=== PATIENT | female | born 1970 | race Caucasian/White ===

== ENCOUNTER 2017-01-25 20:01 | Observation (INO) | payer MEDICARE ==
[2017-01-25] MEDS ORDERED: Ondansetron HCl/PF 4 MG/2 ML Vial ONE ×2 (20:19→22:09)
[2017-01-25 20:53] LABS: ALT (SGPT) 26 U/L (8-55); AST (SGOT) 44 U/L (5-34); Alkaline Phosphatase 60 U/L (40-150); Anion Gap 12 mmol/L (10-20); BUN (Urea Nitrogen) 14 mg/dL (7.0-18.7); Bilirubin, Total 0.6 mg/dL (0.2-1.2); Calc. Creatinine Clearance 0 mL/min (70-130); Carbon Dioxide 26 mmol/L (22-29); Chloride 104 mmol/L (98-107); Estimated GFR-MDRD 45; Globulin 4.2 g/dL (2.4-3.5); Lipase 8 U/L (8-78); Protein, Total 8.4 g/dL (6.0-8.3); Troponin I Less than 0.010 ng/mL (< 0.028)
[2017-01-25 21:19] LABS: #Eosinphils 0.2 thou/uL (0.0-0.7); #Lymphocytes 1.9 thou/uL (1.20-3.40); #Monocytes 0.4 thou/uL (0.11-0.59); #Neutrophils 9.1 thou/uL (1.40-6.50); %Basophils 0.2 % (0.0-1.0); %Eosinophils 1.9 % (0.0-10.0); %Lymphocytes 16.4 % (21.0-51.0); %Monocytes 3.5 % (0.0-10.0); Hematocrit 47.5 % (36.0-47.0); Mean Platelet Volume 7.3 fL (7.4-10.4); White Blood Cell (WBC) Count 11.7 thou/uL (4.8-10.8)
[2017-01-25 21:53] LABS: Bilirubin Negative (Negative); Blood, Urine Negative (Negative); Glucose, Urine (Dipstick) Negative (Negative); Ketone, Urine Negative (Negative); Nitrite Negative (Negative); Protein, Urine (Dipstick) Negative (Neg-Trace); Urobilinogen 0.2 mg/dL (0.2-1.0)
[2017-01-25] MEDS ORDERED: Morphine 2 MG/ML SYRINGE ONE (22:09)
--- NOTE | 2017-01-25 23:23 | CT ---
CT ABDOMEN AND PELVIS WITHOUT CONTRAST: 01/25/17 HISTORY: Epigastric pain, nausea, bilateral flank pain. FINDINGS: The absence of oral and IV contrast reduces the sensitivity of exam, particularly for evaluation of solid organs and bowel. The lung bases are clear. No free air or free fluid seen in the abdomen or pelvis. The patient is po st cholecystectomy, gastric sleeve surgery. No calculi is seen in the kidneys, ureters, or the urina ry bladder. No hydroureteronephrosis is noted on either side. A normal appearing appendix is present . There is fecal material in the colon. Degenerative changes are present in the spine. IMPRESSION: No CT evidence of urinary tract calculi/obstruction or appendicitis. POS: [facility]
[2017-01-26 00:22] LABS: Lactic Acid - Sepsis 1.3 mmol/L (0.5-2.2)
[2017-01-26] MEDS ORDERED: Morphine 2 MG/ML SYRINGE ONE (00:28)
[2017-01-26 01:10] LABS: Troponin I Less than 0.010 ng/mL (< 0.028)
[2017-01-26 01:26] VITALS: BMI 27.6
[2017-01-26] MEDS ORDERED: HYDROcodone/Acetaminophen 7.5/325 mg Tablet PO PRN (01:48)
[2017-01-26] MEDS ORDERED: Acetaminophen 325 MG TAB PO PRN (01:48)
[2017-01-26] MEDS ORDERED: Ondansetron HCl/PF 4 MG/2 ML Vial IVP PRN (01:48)
[2017-01-26] MEDS ORDERED: Lorazepam 1 MG TAB PO PRN (01:52)
[2017-01-26] MEDS ORDERED: Torsemide 20 MG TAB PO PRN (01:52)
[2017-01-26] MEDS ORDERED: Morphine 2 MG/ML SYRINGE SLOW IVP PRN (01:54)
[2017-01-26] MEDS ORDERED: Sodium Chloride 0.9% 1,000 ML IV SCH ×2 (02:00→09:45)
[2017-01-26 04:46] LABS: #Eosinphils 0.1 thou/uL (0.0-0.7); #Lymphocytes 0.8 thou/uL (1.20-3.40); #Monocytes 0.4 thou/uL (0.11-0.59); %Basophils 0.1 % (0.0-1.0); %Lymphocytes 8.3 % (21.0-51.0); %Monocytes 4.1 % (0.0-10.0); Hematocrit 41.1 % (36.0-47.0); Mean Platelet Volume 7.3 fL (7.4-10.4); Red Blood Cell (RBC) Count 4.13 mill/uL (4.20-5.40); White Blood Cell (WBC) Count 9.2 thou/uL (4.8-10.8)
[2017-01-26 06:59] LABS: Anion Gap 10 mmol/L (10-20); BUN (Urea Nitrogen) 21 mg/dL (7.0-18.7); Calc. Creatinine Clearance 53 mL/min (70-130); Calcium 7.9 mg/dL (7.8-10.44); Carbon Dioxide 24 mmol/L (22-29); Chloride 105 mmol/L (98-107); Estimated GFR-MDRD 37; Troponin I 0.023 ng/mL (< 0.028)
--- NOTE | 2017-01-26 07:43 | HP ---
DATE OF ADMISSION: 01/26/2017 CHIEF COMPLAINT: Left-sided pain and nausea. HISTORY OF PRESENT ILLNESS: Patient is a 46-year-old female with past medical history of hypertensi on, coronary artery disease, hyperlipidemia, nephrolithiasis, anxiety, depression, now came today co mplaining of left flank pain and left lower posterior rib cage pain. Pain started this afternoon, s harp shooting kind of pain, intermittent, does not radiate anywhere, associated with some nausea and generalized weakness also. Denies any chest pain, denies any trouble breathing, denies any dizzine ss, denies any cough, denies any sputum production, denies any fever, denies any chills. Complains of fever. Fever is up to 101. Patient also complains of increased frequency of micturition, but de nies any dysuria. Denies any diarrhea. Denies any bloody stool. Denies any black stools. PAST MEDICAL HISTORY: As per HPI. PAST SURGICAL HISTORY: Cardiac stent placement, cholecystectomy, hysterectomy, tubal ligation. SOCIAL HISTORY: Denies smoking, denies alcohol, denies any drugs. FAMILY HISTORY: Positive for heart problems. MEDICATIONS: Reviewed. REVIEW OF SYSTEMS: Constitutional: Positive for fever and chills. Eyes: Denies any vision. Ears : Denies any hearing loss. Neck: Denies any neck pain. Cardiovascular System: Denies any chest pain. Respiratory System: Positive for dyspnea. Positive for cough. Cranial Nerve System: Denie s syncope. Denies lightheadedness. Musculoskeletal: Positive for left flank pain. Gastrointestin al: Positive for nausea. Integumentary: Denies any rash. Genitourinary: Denies dysuria. Compla ins of increased frequency of micturition. All other review of systems are reviewed and are negativ e. PHYSICAL EXAMINATION: CONSTITUTIONAL/VITAL SIGNS: At the time of H and P performed, blood pressure is 95/59, pulse oximet ry 100%, heart rate 94. GENERAL APPEARANCE: Patient appears comfortable. HEENT: Pupils are equal, round, and reactive. Anterior nares patent. Nose normal. Ears normal. Teeth intact. Tongue is moist. NECK: Supple, no JVD. CARDIOVASCULAR SYSTEM: S1 and S2 present. Regular rate and rhythm. No murmurs, no rubs, no gallop s. RESPIRATORY SYSTEM: No wheezing, no rhonchi. Breath sounds present bilaterally. GASTROINTESTINAL: Abdomen is soft, nontender, no guarding, no organomegaly, no masses felt. MUSCULOSKELETAL: No edema. CRANIAL NERVOUS SYSTEM: Awake, follows commands. Strength intact. Sensory intact. PSYCHIATRIC: Mood is appropriate at this time. INTEGUMENTARY: No obvious rashes seen. LABORATORY DATA: At the time of H and P performed, Sodium 137, potassium 5.2, creatinine 1.28, BUN is 14. White count 11.7, hemoglobin 15.8, platelet count is 275. UA: Specific gravity 1.006. CT abdomen and pelvis, no CT evidence of urinary tract calculus or obstruction or appendicitis.. ASSESSMENT AND PLAN: The patient is a 46-year-old female. 1. Left posterior chest pain/flank pain. Plan to check cardiac enzymes. EKG showed some poor R-wa ve progression. We will monitor the patient closely. Plan to place the patient on telemetry. 2. Increased frequency of micturition, rule out urinary tract infection plus fever. Plan, start th e patient on Levaquin 750 IV daily. Plan to send urine for culture and sensitivity. 3. Hypotension. Monitor blood pressure closely. Low blood pressure might be secondary to pain med ications, currently symptomatic. We will give IV fluids. 4. History of coronary artery disease. Continue home medications. 5. History of hyperlipidemia. Continue on statins. The case was discussed in detail with the patient.
--- NOTE | 2017-01-26 08:27 | RAD ---
PORTABLE AP CHEST: Date: 01-26-17 History: Flank pain and nausea, fever. Comparison: 01-26-15 FINDINGS: Cardiac silhouette and pulmonary vasculature are within normal limits. The lungs are clear. There cano s been no interval change from the prior study. IMPRESSION: No acute cardiopulmonary process. POS: [facility]
--- NOTE | 2017-01-26 08:44 | PDOC.PN ---
- Subjective Encounter Start Date: 01/26/17 Encounter Start Time: 08:43 Ms. Kirkland says the pain she was having is now localized to her left side. She felt it when she got up to brush her teeth. She also notes it worse when she takes in a deep breath. she also mentions sinus drainage which has been more lately. - Objective MAR Reviewed: Yes Vital Signs & Weight: Vital Signs (12 hours) Temp Pulse Resp BP BP Pulse Ox 01/26/17 08:06 99.4 F 79 16 01/26/17 07:15 99.4 F 79 16 82/47 L 96 01/26/17 05:49 98/56 L 01/26/17 03:40 98.6 F 88 14 82/44 L 95 01/26/17 02:58 100.8 F H 96 18 Weight Weight 160 lb 14.4 oz I&O: 01/25/17 01/26/17 01/27/17 06:59 06:59 06:59 Intake Total 385 Output Total 350 Balance 35 Result Diagrams: 01/26/17 03:56 01/26/17 03:56 Additional Labs: Accuchecks 01/26/17 01/26/17 05:46 01:34 POC Glucose 380 H 247 H Phys Exam - Physical Examination HEENT: PERRLA + faint rattle in the left base, cleared with a deep breath Cardiovascular: RRR, no significant murmur Gastrointestinal: soft, non-tender, positive bowel sounds Musculoskeletal: no edema Dx/Plan (1) Left flank pain Code(s): R10.9 - UNSPECIFIED ABDOMINAL PAIN Status: Acute (2) Maryo-sv-[id number] kidney injury Code(s): N17.9 - ACUTE KIDNEY FAILURE, UNSPECIFIED; N18.9 - CHRONIC KIDNEY DISEASE, UNSPECIFIED Status: Acute (3) CAD (coronary artery disease) Code(s): I25.10 - ATHSCL HEART DISEASE OF [place] CORONARY ARTERY W/O ANG PCTRS Status: Chronic (4) Diabetes mellitus Code(s): E11.9 - TYPE 2 DIABETES MELLITUS WITHOUT COMPLICATIONS Status: Chronic Qualifiers: Diabetes mellitus type: type 1 - Plan * Left flank pain- suspect may be due to early pneumonia- she had some very subtle changes on her lung exam, and low grade temp with upper respiratory symptoms- Will start a course on Levaquin * DM- blood glucose is elevated- she has an insulin pump, will allow her to self correct * CAD- stable * HTN- blood pressure is a bit low, likely from volume depletion- continue IV hydration * Hopefully home later this afternoon .
[2017-01-26] MEDS ORDERED: Clopidogrel Bisulfate 75 MG TAB PO SCH (09:00)
[2017-01-26] MEDS ORDERED: Aspirin 81 mg Enteric Coated Tablet PO SCH (09:00)
[2017-01-26] MEDS ORDERED: Famotidine 20 MG TAB PO SCH (09:00)
[2017-01-26] MEDS ORDERED: FLU VACC QS2017-18 36 mo. & older 0.5 ML SYRINGE IM ONE (09:00)
[2017-01-26] MEDS: Heparin 5,000 UNITS/ML VIAL SC SCH ×2 (09:17→15:12)
[2017-01-26 11:52] VITALS: TEMP 98.5
[2017-01-26 13:30] VITALS: BP 108/55
[2017-01-26] MEDS ORDERED: Metoclopramide HCl 10 MG/2 ML VIAL IVP SCH (14:00)
--- NOTE | 2017-01-26 21:31 | DIS ---
PRIMARY CARE PHYSICIAN: Natali Florez M.D. DATE OF ADMISSION: 01/26/2017 DATE OF DISCHARGE: 01/26/2017 DISCHARGE DISPOSITION: Home. PRIMARY DISCHARGE DIAGNOSES: 1. Left flank pain, questionable etiology. 2. Probable early pneumonia. 3. History of coronary artery disease. 4. Dyslipidemia. 5. History of nephrolithiasis. DISCHARGE MEDICATIONS: Include, Levaquin 500 mg 1 p.o. q. day for 7 days as well as Phenergan 25 mg q.6 hours as needed, Bystolic 5 mg daily, Ativan 1 mg t.i.d. as needed, Dexilant 60 mg daily, Plavi x 75 mg daily, aspirin 81 mg daily, calcium plus vitamin D3 two tablets twice a day. PROCEDURES DONE DURING ADMISSION: The patient had a CT scan of the abdomen and pelvis, which showed no evidence of any urinary tract calculi. There was no obstruction, no appendicitis. There were s ome degenerative changes noted in the spine. The patient also had a chest x-ray showing no acute pr ocess. HOSPITAL COURSE: Ms. Kirkland is a pleasant 46-year-old female that presented to the emergency room c omplaining of some left sided pain and feeling nauseated. She was also having some fever and sinus drainage as well as some cough off and on. She was initially thought to possibly have nephrolithias is; however, CT scan of the abdomen and pelvis was essentially negative. Her urinalysis was complet carlie negative with no evidence of any blood in the urine. Also, her CBC, there is noted slightly kianna vated white blood cell count and left shift, but this resolved the following morning and she did hav e some mild renal insufficiency, which was made slightly worse due to volume depletion. Her symptom s actually began to improve somewhat during her hospital stay, but not completely resolved. However , there was no symptom that will require continued hospital treatment, and that her vital signs at t he time of discharge, she was afebrile with a temperature of 98.5, and a blood pressure of 108/55, a nd a heart rate of 78. There is no ectopy on her telemetry and blood sugar at the time of discharge was 106. Her troponin was 0.023. It is suspected that she may have an early pneumonia and she did have some rhonchi and rales, which cleared with a deep breath. On exam, in the same location where she was having the pain. Therefore, she will be discharged home on Levaquin for community-acquired pneumonia as well as Phenergan for the nausea and vomiting and she was instructed to follow up with her primary care physician in approximately 1 week. I did explain to her that she may need an eval uation for her heart such as a stress test, but this can be done on an outpatient basis.
== END 2017-01-26 15:35 | disposition home or self-care (01) ==
LOC: ERS 20:01 → 2SW 01-26 00:53
PROVIDERS: ADMIT Internal Medicine; ATTEND Internal Medicine
DX: R10.9 Unspecified abdominal pain (principal); I25.10 Atherosclerotic heart disease of native coronary artery without angina pectoris; E78.5 Hyperlipidemia, unspecified; N28.9 Disorder of kidney and ureter, unspecified; R09.89 Other specified symptoms and signs involving the circulatory and respiratory systems; R11.0 Nausea; I10 Essential (primary) hypertension; F32.9 Major depressive disorder, single episode, unspecified; F41.9 Anxiety disorder, unspecified; R07.81 Pleurodynia; R35.0 Frequency of micturition; I95.9 Hypotension, unspecified; R53.1 Weakness; Z79.4 Long term (current) use of insulin; Z79.02 Long term (current) use of antithrombotics/antiplatelets; Z79.82 Long term (current) use of aspirin; Z79.899 Other long term (current) drug therapy; Z91.048 Other nonmedicinal substance allergy status; Z98.51 Tubal ligation status; Z95.818 Presence of other cardiac implants and grafts; Z90.49 Acquired absence of other specified parts of digestive tract; Z90.710 Acquired absence of both cervix and uterus; Z87.442 Personal history of urinary calculi
CPT/HCPCS: 71010; 74176; 80048; 80053; 81003; 82550; 82553; 82962 ×2; 83605; 83690; 84484 ×3; 85025 ×2; 87040; 87804 ×2; 93005; 96361; 96365; 96375; 96376; G0378; 36415; 36416; 96374; J1644; J1956; J2270; J2405; J2765

== ENCOUNTER 2017-04-30 11:16 | Emergency (ER) | payer MEDICARE ==
[2017-04-30 11:55] LABS: #Lymphocytes 1.4 thou/uL (1.20-3.40); #Monocytes 0.5 thou/uL (0.11-0.59); #Neutrophils 10.5 thou/uL (1.40-6.50); %Basophils 0.4 % (0.0-1.0); %Lymphocytes 11.4 % (21.0-51.0); %Monocytes 4.1 % (0.0-10.0); %Neutrophils 84.2 % (42.0-75.0); Hemoglobin 12.2 g/dL (12.0-16.0); Mean Corpuscular HGB CONC 33.7 g/dL (32.0-36.0); Mean Corpuscular Hemoglobin 32.1 pg (27.0-31.0); Mean Corpuscular Volume 95.3 fl (81.0-99.0); Mean Platelet Volume 6.8 fL (7.4-10.4); Platelet Count 224 thou/uL (130-400); RBC Distribution Width 12.2 % (11.5-14.5); Red Blood Cell (RBC) Count 3.79 mill/uL (4.20-5.40); White Blood Cell (WBC) Count 12.5 thou/uL (4.8-10.8)
[2017-04-30 12:08] LABS: ALT (SGPT) 44 U/L (8-55); AST (SGOT) 98 U/L (5-34); Albumin 3.9 g/dL (3.5-5.0); Alkaline Phosphatase 44 U/L (40-150); Anion Gap 19 mmol/L (10-20); BUN (Urea Nitrogen) 18 mg/dL (7.0-18.7); Bilirubin, Total 0.7 mg/dL (0.2-1.2); Calc. Creatinine Clearance 0 mL/min (70-130); Calcium 9.1 mg/dL (7.8-10.44); Carbon Dioxide 17 mmol/L (22-29); Chloride 102 mmol/L (98-107); Estimated GFR-MDRD 35; Glucose 431 mg/dL (70-105); Potassium 4.8 mmol/L (3.5-5.1); Protein, Total 6.9 g/dL (6.0-8.3); Sodium 133 mmol/L (136-145)
--- NOTE | 2017-04-30 12:38 | RAD ---
TWO VIEWS OF THE CHEST: COMPARISON: 07/04/14. HISTORY: Fever. FINDINGS: Two views of the chest show normal sized cardiomediastinal silhouette. There is no evidence of consol idation, mass, or pleural effusion. Mild degenerative changes are seen in the spine. IMPRESSION: No evidence of acute cardiopulmonary disease. POS: [facility]
[2017-04-30 13:16] LABS: Bilirubin Negative (Negative); Blood, Urine Negative (Negative); Clarity Slightly Cloudy (Clear); Glucose, Urine (Dipstick) >=1000 mg/dL (Negative); Leukocyte Negative (Negative); Nitrite Negative (Negative); Protein, Urine (Dipstick) Negative (Neg-Trace); Urobilinogen 0.2 mg/dL (0.2-1.0); pH, Urine 5.5 (5.0-9.0)
[2017-04-30 13:22] LABS: Specific Gravity, Urine 1.013 (1.002-1.036)
[2017-04-30] MEDS ORDERED: Insulin Regular 300 UNITS/3 ML VIAL ONE (13:39)
== END 2017-04-30 18:28 | disposition home or self-care (01) ==
LOC: SCSER 11:16
DX: E10.65 Type 1 diabetes mellitus with hyperglycemia (principal); J06.9 Acute upper respiratory infection, unspecified; I25.10 Atherosclerotic heart disease of native coronary artery without angina pectoris; K21.9 Gastro-esophageal reflux disease without esophagitis; N18.6 End stage renal disease; F41.9 Anxiety disorder, unspecified; F32.9 Major depressive disorder, single episode, unspecified; Z79.82 Long term (current) use of aspirin; Z79.899 Other long term (current) drug therapy
CPT/HCPCS: 36415; 36416; 71046; 80053; 81003; 82010; 85025; 87081; 87430; 93005; 96361; 96374; J1815

== ENCOUNTER 2018-02-14 12:36 | Inpatient (IN) | payer MEDICARE ==
[2018-02-14 13:18] VITALS: BMI 27.2
[2018-02-14 14:40] LABS: #Basophils 0.1 thou/uL (0.0-0.2); #Eosinphils 0.1 thou/uL (0.0-0.7); #Lymphocytes 2.5 thou/uL (1.20-3.40); #Monocytes 0.3 thou/uL (0.11-0.59); #Neutrophils 2.8 thou/uL (1.40-6.50); %Basophils 0.9 % (0.0-1.0); %Eosinophils 2.2 % (0.0-10.0); %Lymphocytes 43.2 % (21.0-51.0); %Monocytes 5.6 % (0.0-10.0); %Neutrophils 48.1 % (42.0-75.0); Hemoglobin 14.6 g/dL (12.0-16.0); Mean Corpuscular HGB CONC 32.2 g/dL (32.0-36.0); Mean Corpuscular Hemoglobin 31.7 pg (27.0-31.0); Mean Corpuscular Volume 98.3 fL (78.0-98.0); Mean Platelet Volume 7.3 fL (7.4-10.4); Platelet Count 214 thou/uL (130-400); RBC Distribution Width 11.4 % (11.5-14.5); Red Blood Cell (RBC) Count 4.63 mill/uL (4.20-5.40); White Blood Cell (WBC) Count 5.9 thou/uL (4.8-10.8)
[2018-02-14 14:44] LABS: INR-International Normal Ratio 1.1; PTT 28.9 SEC (22.9-36.1)
[2018-02-14 14:59] LABS: ALT (SGPT) 26 U/L (8-55); AST (SGOT) 40 U/L (5-34); Albumin 4.2 g/dL (3.5-5.0); Alkaline Phosphatase 58 U/L (40-150); Anion Gap 8 mmol/L (10-20); BUN (Urea Nitrogen) 15 mg/dL (7.0-18.7); Bilirubin, Total 0.7 mg/dL (0.2-1.2); Calc. Creatinine Clearance 54 mL/min (70-130); Calcium 9.7 mg/dL (7.8-10.44); Carbon Dioxide 28 mmol/L (22-29); Chloride 105 mmol/L (98-107); Estimated GFR-MDRD 39; Globulin 3.4 g/dL (2.4-3.5); Glucose 161 mg/dL (70-105); Potassium 4.4 mmol/L (3.5-5.1); Protein, Total 7.6 g/dL (6.0-8.3); Sodium 137 mmol/L (136-145)
[2018-02-14] MEDS ORDERED: Lorazepam 1 MG TAB PO PRN (15:01)
[2018-02-14 15:04] LABS: Troponin I Less than 0.010 ng/mL (< 0.028)
[2018-02-14] MEDS ORDERED: Enoxaparin Sodium 80 MG/0.8 ML SYRINGE SC SCH (17:44)
[2018-02-14] MEDS ORDERED: Communication Order-Pharmacy FS SCH (17:45)
[2018-02-14] MEDS ORDERED: Insulin Regular 300 UNITS/3 ML VIAL SC PRN (17:46)
[2018-02-14] MEDS ORDERED: Dextrose 5% in Water 1,000 ML IV PRN (17:46)
[2018-02-14] MEDS ORDERED: Nitroglycerin 0.4 MG TAB (25 Tab Bottle) SL PRN (17:46)
[2018-02-14] MEDS ORDERED: Dextrose 50% Abboject 50 ML SYRINGE IVP PRN (17:46)
[2018-02-14] MEDS ORDERED: Aspirin 81 mg Enteric Coated Tablet PO SCH (18:00)
[2018-02-14] MEDS ORDERED: Clopidogrel Bisulfate 75 MG TAB PO SCH (18:00)
[2018-02-14] MEDS ORDERED: Rosuvastatin 20 MG TAB PO SCH (18:15)
[2018-02-14] MEDS ORDERED: Amlodipine 5 MG TAB PO SCH (18:15)
[2018-02-14] MEDS ORDERED: Estrogens, Conjugated 0.3 MG TAB PO SCH (18:15)
[2018-02-15] MEDS ORDERED: Diazepam 5 MG TAB PO SCH (06:00)
[2018-02-15] MEDS: Sodium Chloride 0.9% 1,000 ML IV SCH ×3 (06:04→20:37)
[2018-02-15] MEDS: Rosuvastatin 20 MG TAB PO SCH (06:12)
[2018-02-15] MEDS: Aspirin 81 mg Enteric Coated Tablet PO SCH (06:13)
[2018-02-15] MEDS: Estrogens, Conjugated 0.3 MG TAB PO SCH (06:16)
[2018-02-15] MEDS ORDERED: Lidocaine 1% (PF) 30 ML VIAL ONE (08:42)
[2018-02-15] MEDS ORDERED: Amlodipine 5 MG TAB PO SCH (09:00)
[2018-02-15] MEDS ORDERED: Clopidogrel Bisulfate 75 MG TAB PO SCH (09:00)
[2018-02-15] MEDS ORDERED: Midazolam HCl 2 mg/2 ml Vial ONE (09:03)
[2018-02-15] MEDS ORDERED: Fentanyl 100 MCG/2 ML VIAL ONE (09:04)
[2018-02-15] MEDS ORDERED: Nitroglycerin 100MG/250ML BOT 250 ML ONE (09:33)
[2018-02-15] MEDS ORDERED: Acetaminophen/Codeine 30-300mg Tablet PO PRN ×2 (10:12)
[2018-02-15] MEDS ORDERED: Nitroglycerin 0.4 MG TAB (25 Tab Bottle) SL PRN (10:12)
[2018-02-15] MEDS ORDERED: traMADol HCl 50 MG TAB PO PRN (10:12)
[2018-02-15] MEDS ORDERED: Sodium Chloride 0.9% 200 ML IV SCH (10:15)
[2018-02-15] MEDS ORDERED: Iopamidol 370 76% 100 ML VIAL ONE (10:45)
[2018-02-15] MEDS ORDERED: Ondansetron PF 4 MG/2 ML Vial IVP PRN (11:18)
[2018-02-15] MEDS ORDERED: TICAGRELOR 90 MG TABLET PO SCH (11:30)
[2018-02-15] MEDS ORDERED: Nitroglycerin 2% Ointment 1 INCH/1 GM Packet TOP SCH (20:00)
[2018-02-15] MEDS: TICAGRELOR 90 MG TABLET PO SCH (20:35)
[2018-02-16] MEDS: Sodium Chloride 0.9% 1,000 ML IV SCH (02:12)
[2018-02-16] MEDS: Aspirin 81 mg Enteric Coated Tablet PO SCH (08:25)
[2018-02-16] MEDS: Estrogens, Conjugated 0.3 MG TAB PO SCH (08:25)
[2018-02-16] MEDS: Rosuvastatin 20 MG TAB PO SCH (08:26)
[2018-02-16] MEDS: TICAGRELOR 90 MG TABLET PO SCH (08:26)
[2018-02-16 11:33] VITALS: BP 99/57; TEMP 98
--- NOTE | 2018-02-16 22:53 | DIS ---
FINAL DIAGNOSES: 1. Coronary artery disease, single vessel. 2. Diabetes. 3. Hypercholesterolemia, controlled. MEDICATIONS AT THE TIME OF DISCHARGE: 1. Aspirin 81 mg a day. 2. Brilinta 90 mg twice a day. 3. Ranexa 500 mg twice a day. Dose to be increased if needed. 4. Isosorbide mononitrate 30 mg a day. 5. Bystolic 2.5 mg a day. 6. Nitroglycerin if needed. PROCEDURES DURING THIS ADMISSION: Cardiac catheterization. HOSPITAL COURSE: The patient was admitted to the hospital with resting anginal chest pain, relieved with nitroglycerin. She went to the cardiac catheterization lab yesterday revealed that the patient had a 30% proximal LAD lesion, no stenosis in the stented area before a large first diagonal branch. The LAD beyond the first diagonal branch is very small. There is a 90% lesion in that area, but the vessel size distal to the lesion appears to be approximately 1.5 mm in diameter. It is certainly be low 2 mm. The LAD does not supply the apex, circumflex normal, right coronary large distribution vessel normal and the posterior descending artery supplies the apex. Consideration was given to best treatment. It certainly appeared that the LAD is extremely small in area. Certainly the LAD looked smaller than any available stents. The small stent we have here is 2 .25 mm in diameter, but even a 2-mm stent would appear to be oversized. In addition, there is some t ortuosity before and after the stenosis and appeared that the most appropriate initial step would be aggressive medical therapy. The patient was given medicines and she is feeling well. She is up walk ing in the halls. If she has intractable angina, intervention could be done, but discussed with the patient, this could result in occlusion of the LAD, may be this better to let her the artery hopefull y form collaterals. There do not appear to be collaterals currently. If the patient has intractable angina, intervention could be done, but the understanding that this co uld result in vessel occlusion with acute infarction as mentioned in the LAD does not supply the apex and only supplies a small amount of myocardium. There is no diagonal branches given off distal to t he lesion and it does not go to the apex. Certainly balloon angioplasty could be done, but in the sm all vessels sometimes result in dissection that requiring stenting which is problematic in this case. Also showed these films to one of our partners, Dr. Daniel. He also agrees with this strategy a nd indicates he would not proceed directly to intervention which is also my opinion. Discussed this in detail with the patient and , they understand and in agreement with the plan. Unfortunatel y, there is no ideal treatment of this situation. The vessel was much too small to bypass.
== END 2018-02-16 15:07 | disposition home or self-care (01) | DRG 287 ==
LOC: 2NO 12:36
PROVIDERS: ADMIT Internal Medicine Cardiovascular Disease; ATTEND Internal Medicine Cardiovascular Disease
PROC: 4A023N7 Measurement of Cardiac Sampling and Pressure, Left Heart, Percutaneous Approach (ICD-10-PCS; principal; 2018-02-15)
PROC: B2111ZZ Fluoroscopy of Multiple Coronary Arteries using Low Osmolar Contrast (ICD-10-PCS; 2018-02-15)
PROC: B2151ZZ Fluoroscopy of Left Heart using Low Osmolar Contrast (ICD-10-PCS; 2018-02-15)
DX: I25.110 Atherosclerotic heart disease of native coronary artery with unstable angina pectoris (principal); E78.5 Hyperlipidemia, unspecified; E11.9 Type 2 diabetes mellitus without complications; K21.9 Gastro-esophageal reflux disease without esophagitis; I10 Essential (primary) hypertension; Z79.899 Other long term (current) drug therapy; Z79.4 Long term (current) use of insulin; Z79.82 Long term (current) use of aspirin; Z79.02 Long term (current) use of antithrombotics/antiplatelets; Z91.048 Other nonmedicinal substance allergy status
CPT/HCPCS: 36415; 76942; 80053; 84484; 85025; 85610; 85730; 90471; 90686; 90732; 93458; 99152; 99153; C1769; G0008; G0009; J1644; J1650; J2001; J2250; J2405; J3010

== ENCOUNTER 2018-07-03 10:38 | Outpatient (CLI) | payer MEDICARE ==
--- NOTE | 2018-07-03 11:09 | RAD ---
Exam: Right hip 2 views: HISTORY: Right hip pain Findings/impression: Degenerative changes without fracture or dislocation.
--- NOTE | 2018-07-03 13:16 | RAD ---
FRONTAL RADIOGRAPH PELVIS: Date: 07/03/18 COMPARISON: None. HISTORY: Bilateral hip pain. FINDINGS: No widening of the sacroiliac joints or pubic symphysis. The pelvic ring appears intact. The femoral heads project normally over their respective acetabulum. There is degenerative change involving bilat eral hips, better assessed on dedicated bilateral hip radiographs. IMPRESSION: No acute osseous abnormality. POS: [facility]
--- NOTE | 2018-07-03 13:19 | RAD ---
2 VIEWS LEFT HIP: Date: 07/03/18 COMPARISON: None. HISTORY: Left hip pain. FINDINGS: There is mild superior joint space narrowing involving the left hip. There is mild lateral acetabular osteophyte formation. There is mild subchondral sclerotic change involving the lateral aspect of the left acetabular roof. There is no displaced fracture or evidence of dislocation seen. IMPRESSION: Degenerative change as detailed above. POS: [facility]
== END 2018-07-03 10:39 | disposition home or self-care (01) ==
LOC: RAD 10:38
PROVIDERS: ATTEND Internal Medicine Rheumatology
DX: M25.551 Pain in right hip (principal); M25.552 Pain in left hip; M16.0 Bilateral primary osteoarthritis of hip
CPT/HCPCS: 72170

== ENCOUNTER 2020-05-22 05:53 | Day surgery (SDC) | payer MEDICARE ==
[2020-05-21 12:26] VITALS: BMI 28.1
[2020-05-22] MEDS ORDERED: Cyclopentolate 1% Opth Drop 2 ML BOT ONE (06:06)
[2020-05-22] MEDS ORDERED: Phenylephrine 2.5% Ophth Soln 5 ML BOT ONE (06:06)
[2020-05-22] MEDS ORDERED: EPINEPHrine 0.3 MG in Ophthalmic Irrigation Solution 500 ML FS SCH (06:15)
[2020-05-22] MEDS ORDERED: PROPOFOL 20 ML ONE (06:19)
[2020-05-22] MEDS ORDERED: Midazolam HCl 2 mg/2 ml Vial ONE (06:19)
[2020-05-22] MEDS ORDERED: Fentanyl 100 MCG/2 ML VIAL ONE (06:19)
[2020-05-22] MEDS ORDERED: Famotidine/PF 20 mg/2ml Vial ONE (06:32)
[2020-05-22] MEDS ORDERED: PHENYLEPHRINE-NS 100 MCG/ML 10 ML SYRINGE ONE (13:42)
[2020-05-22] MEDS ORDERED: PROPOFOL 200 MG/20 ML VIAL ONE (13:42)
[2020-05-22] MEDS ORDERED: Lidocaine 1% PF 5 ML VIAL ONE (13:42)
[2020-05-22] MEDS ORDERED: ePHEDrine 50 MG/ML VIAL ONE (13:42)
[2020-05-22] MEDS ORDERED: Ondansetron PF 4 MG/2 ML Vial ONE (13:42)
[2020-05-22] MEDS ORDERED: Metoclopramide HCl 10 MG/2 ML VIAL ONE (13:42)
--- NOTE | 2020-05-23 14:56 | OP ---
DATE OF PROCEDURE: 05/22/2020 PREOPERATIVE DIAGNOSIS: Vitreous hemorrhage, left eye. POSTOPERATIVE DIAGNOSIS: Vitreous hemorrhage, left eye. PROCEDURE: Pars plana vitrectomy, membrane peel, left eye. ANESTHESIA: General endotracheal anesthesia. PROCEDURE IN DETAIL: The patient was prepped and draped in usual sterile manner for ophthalmic surgery on the left eye. Lid speculum was placed in the left eye. 27-gauge trocars placed supratemporally, inferotemporally, supranasally. Infusion line was placed inferotemporally. Light pipe vitreous cutter inserted to the eye. Core vitrectomy was performed. Vitreous hemorrhage was removed. Epiretinal membranes were peeled from the retinal surface superotemporally and proliferation was trimmed and removed from the superior temporal area. Excellent pre-existing laser was noted and no further laser was placed. Trocars were removed. Eye was noted to retain pressure well. Retrobulbar Kenalog and sequential Ancef were placed. The eye was patched and shielded. The patient was awakened and taken to the recovery unit in good condition having suffered no immediate preop complications. The patient was instructed to keep patch shield on. Avoid lifting or bending. Followup appointment with Dr. Larry. Job ID: [id number]
== END 2020-05-22 08:57 | disposition home or self-care (01) ==
LOC: SDC 05:53
PROVIDERS: ATTEND Ophthalmology Retina Specialist
PROC: 08T53ZZ Resection of Left Vitreous, Percutaneous Approach (ICD-10-PCS; principal; 2020-05-22)
PROC: 08NF3ZZ Release Left Retina, Percutaneous Approach (ICD-10-PCS; 2020-05-22)
DX: H43.12 Vitreous hemorrhage, left eye (principal); G47.33 Obstructive sleep apnea (adult) (pediatric); I10 Essential (primary) hypertension; E78.5 Hyperlipidemia, unspecified; I25.10 Atherosclerotic heart disease of native coronary artery without angina pectoris; E10.9 Type 1 diabetes mellitus without complications; K21.9 Gastro-esophageal reflux disease without esophagitis; F32.9 Major depressive disorder, single episode, unspecified; F41.9 Anxiety disorder, unspecified; Z79.02 Long term (current) use of antithrombotics/antiplatelets; Z79.82 Long term (current) use of aspirin; Z79.899 Other long term (current) drug therapy; Z91.048 Other nonmedicinal substance allergy status; Z95.5 Presence of coronary angioplasty implant and graft
CPT/HCPCS: 36416; J0171; J2250; J2405; J2704; J2765; J3010; J3490; S0028

== ENCOUNTER 2020-08-04 21:18 | Inpatient (IN) | payer MEDICARE ==
[2020-08-04] MEDS ORDERED: Acetaminophen 500 MG TAB ONE (22:15)
[2020-08-04] MEDS ORDERED: Aspirin Chewable 81 MG TAB ONE (22:15)
[2020-08-04] MEDS ORDERED: Morphine 4 MG/ML VIAL ONE (22:36)
[2020-08-04 22:50] LABS: #Eosinphils 0.2 thou/uL (0.0-0.7); #Lymphocytes 0.8 thou/uL (1.20-3.40); #Monocytes 0.6 thou/uL (0.11-0.59); #Neutrophils 8.4 thou/uL (1.40-6.50); %Basophils 0.1 % (0.0-1.0); %Eosinophils 1.8 % (0.0-10.0); %Lymphocytes 7.8 % (21.0-51.0); %Monocytes 6.2 % (0.0-10.0); %Neutrophils 84.2 % (42.0-75.0); Hemoglobin 13.9 g/dL (12.0-16.0); Mean Corpuscular HGB CONC 32.7 g/dL (32.0-36.0); Mean Corpuscular Hemoglobin 31.7 pg (27.0-31.0); Mean Corpuscular Volume 96.9 fL (78.0-98.0); Mean Platelet Volume 7.7 fL (7.4-10.4); Platelet Count 214 thou/uL (130-400); RBC Distribution Width 11.8 % (11.5-14.5); White Blood Cell (WBC) Count 9.9 thou/uL (4.8-10.8)
[2020-08-04 23:09] LABS: ALT (SGPT) 17 U/L (8-55); AST (SGOT) 26 U/L (5-34); Albumin 3.9 g/dL (3.5-5.0); Alkaline Phosphatase 71 U/L (40-110); Anion Gap 14 mmol/L (10-20); BUN (Urea Nitrogen) 21 mg/dL (9.8-20.1); Bilirubin, Total 0.7 mg/dL (0.2-1.2); Calc. Creatinine Clearance 0 mL/min (70-130); Carbon Dioxide 25 mmol/L (22-29); Chloride 107 mmol/L (98-107); Globulin 2.8 g/dL (2.4-3.5); Glucose 99 mg/dL (70-105); Potassium 4.7 mmol/L (3.5-5.1); Protein, Total 6.7 g/dL (6.0-8.3); Sodium 141 mmol/L (136-145)
[2020-08-05] MEDS ORDERED: Cefepime 2 GM VIAL ONE
[2020-08-05] MEDS ORDERED: Vancomycin 1 GM/200 ML BAG ONE ×2 (00:38→00:41)
[2020-08-05] MEDS ORDERED: Acetaminophen 325 MG TAB ONE (01:12)
[2020-08-05] MEDS ORDERED: Dextrose 50% Abboject 50 ML SYRINGE SLOW IVP PRN (01:28)
[2020-08-05] MEDS ORDERED: Dextrose 5% in Water 1,000 ML IV PRN (01:28)
[2020-08-05] MEDS ORDERED: HYDROcodone/Acetaminophen 5/325 mg Tablet PO PRN (01:28)
[2020-08-05] MEDS ORDERED: Aspirin Chewable 81 MG TAB PO SCH ×2 (01:45→09:00)
[2020-08-05 02:23] LABS: Troponin I Less than 0.010 ng/mL (< 0.028)
[2020-08-05 04:10] LABS: Bacteria/HPF None Seen HPF (None Seen); Bilirubin Negative (Negative); Blood, Urine Negative (Negative); Clarity Clear (Clear); Glucose, Urine (Dipstick) 70 mg/dL (Negative); Ketone, Urine 20 mg/dL (Negative); Leukocyte Negative Leu/uL (Negative); Nitrite Negative (Negative); Protein, Urine (Dipstick) 10 mg/dL (Neg-Trace); RBC/HPF 0-3 HPF (0-3); Specific Gravity, Urine 1.019 (1.002-1.036); Squamous Epithelial 0-3 HPF (0-3); Urobilinogen Normal mg/dL (Less than 2); WBC/HPF 0-3 HPF (0-3)
[2020-08-05 04:14] LABS: Urine Culture Reflex No No
[2020-08-05 04:48] LABS: #Eosinphils 0.1 thou/uL (0.0-0.7); #Lymphocytes 0.9 thou/uL (1.20-3.40); #Monocytes 0.2 thou/uL (0.11-0.59); #Neutrophils 5.2 thou/uL (1.40-6.50); %Basophils 0.3 % (0.0-1.0); %Lymphocytes 13.7 % (21.0-51.0); %Monocytes 3.6 % (0.0-10.0); %Neutrophils 81.4 % (42.0-75.0); Hemoglobin 11.8 g/dL (12.0-16.0); Mean Platelet Volume 7.6 fL (7.4-10.4); Platelet Count 183 thou/uL (130-400); RBC Distribution Width 11.8 % (11.5-14.5); White Blood Cell (WBC) Count 6.4 thou/uL (4.8-10.8)
[2020-08-05 05:11] LABS: Troponin I Less than 0.010 ng/mL (< 0.028)
[2020-08-05 06:17] VITALS: BMI 29.9
[2020-08-05] MEDS: HumaLOG 300 UNITS/3 ML VIAL SC PRN ×2 (06:52→14:03)
[2020-08-05] MEDS: Piperacillin/Tazobactam 3.375 GM in Sodium Chloride 0.9% 100 ML IVPB SCH ×3 (06:53→17:25)
[2020-08-05 07:47] LABS: Creatinine, Urine 96.54 mg/dL (47-110); Protein, Urine Random Quant Less than 10 mg/dL (1-14); Sodium, Urine 72 mmol/L (Not Available); Urea Nitrogen, Random Urine 779 mg/dl
[2020-08-05 08:18] LABS: Anion Gap 14 mmol/L (10-20); BUN (Urea Nitrogen) 22 mg/dL (9.8-20.1); Calc. Creatinine Clearance 57 mL/min (70-130); Calcium 8.6 mg/dL (7.8-10.44); Carbon Dioxide 18 mmol/L (22-29); Cardiac Risk 2.6 (Less than 4.5); Chloride 108 mmol/L (98-107); Cholesterol 100 mg/dl (< 200 Desired); Glucose 274 mg/dL (70-105); HDL Cholesterol 38 mg/dL (>60 Neg Risk); LDL Cholesterol, Calculated 54 mg/dL; Potassium 4.2 mmol/L (3.5-5.1); Sodium 136 mmol/L (136-145); Triglycerides 41 mg/dL (Less than 150)
[2020-08-05] MEDS ORDERED: Nitroglycerin 0.4 MG TAB (25 Tab Bottle) SL PRN (08:51)
[2020-08-05] MEDS ORDERED: Non-Formulary Item 1 EACH (Potassium Chloride [Potassium Chloride] 10 MEQ Tablet.Er) PO PRN (08:51)
[2020-08-05 09:00] LABS: SARS-CoV-2 PCR by NAA Not Detected (NotDetected)
[2020-08-05] MEDS ORDERED: Sodium Chloride 0.9% 1,000 ML IV SCH (09:00)
[2020-08-05] MEDS ORDERED: TICAGRELOR 60 MG TABLET PO SCH (09:00)
[2020-08-05] MEDS ORDERED: Non-Formulary Item 1 EACH (Dexlansoprazole [Dexilant] 60 MG Cap.Dr.Bp) PO SCH (09:00)
[2020-08-05] MEDS ORDERED: Non-Formulary Item 1 EACH (Cholecalciferol (Vitamin D3) [Vitamin D3] 25 MCG Capsule) PO SCH (09:00)
[2020-08-05] MEDS ORDERED: Nebivolol HCl 5 MG TAB PO SCH (09:00)
[2020-08-05] MEDS: Acetaminophen 325 MG TAB PO PRN (09:23)
[2020-08-05] MEDS: Ondansetron ODT 4 MG TAB PO PRN ×3 (09:24→22:40)
[2020-08-05] MEDS: Lorazepam 1 MG TAB PO PRN (09:24)
[2020-08-05] MEDS: Potassium Chloride 10 MEQ TAB PO SCH (09:25)
[2020-08-05] MEDS: Cholecalciferol 1,000 UNITS (25 MCG) TAB PO SCH (09:25)
[2020-08-05] MEDS: Bupropion 150 MG SR TAB PO SCH ×2 (09:25→21:59)
[2020-08-05] MEDS: Famotidine 20 MG TAB PO SCH ×2 (09:26→21:59)
[2020-08-05] MEDS ORDERED: Piperacillin/Tazobactam 3.375 GM VIAL ONE (12:54)
[2020-08-05] MEDS: Losartan 25 MG TAB PO SCH (14:01)
[2020-08-05] MEDS: Nebivolol HCl 2.5 MG TAB PO SCH (14:01)
[2020-08-05] MEDS: Enoxaparin Sodium 40 MG/0.4 ML SYRINGE SC SCH (14:08)
[2020-08-05] MEDS: Aspirin 81 mg Enteric Coated Tablet PO SCH (16:46)
[2020-08-05] MEDS ORDERED: Colchicine 0.6 MG TAB PO SCH (17:45)
[2020-08-05] MEDS ORDERED: Rosuvastatin 20 MG TAB PO SCH (21:00)
[2020-08-05] MEDS: Rosuvastatin 20 MG TAB PO SCH (21:59)
[2020-08-06] MEDS: Piperacillin/Tazobactam 3.375 GM in Sodium Chloride 0.9% 100 ML IVPB SCH ×4 (00:27→17:44)
[2020-08-06] MEDS: Acetaminophen 325 MG TAB PO PRN ×2 (04:51→19:31)
[2020-08-06 05:41] LABS: Anion Gap 12 mmol/L (10-20); BUN (Urea Nitrogen) 13 mg/dL (9.8-20.1); Calc. Creatinine Clearance 60 mL/min (70-130); Calcium 8.3 mg/dL (7.8-10.44); Carbon Dioxide 22 mmol/L (22-29); Chloride 109 mmol/L (98-107); Glucose 256 mg/dL (70-105); Potassium 4.2 mmol/L (3.5-5.1); Sodium 139 mmol/L (136-145)
[2020-08-06] MEDS: HumaLOG 300 UNITS/3 ML VIAL SC PRN ×2 (06:47→17:44)
[2020-08-06] MEDS: Aspirin 81 mg Enteric Coated Tablet PO SCH (09:01)
[2020-08-06] MEDS: Famotidine 20 MG TAB PO SCH ×2 (09:01→21:31)
[2020-08-06] MEDS: Potassium Chloride 10 MEQ TAB PO SCH (09:02)
[2020-08-06] MEDS: Nebivolol HCl 2.5 MG TAB PO SCH (09:02)
[2020-08-06] MEDS: Cholecalciferol 1,000 UNITS (25 MCG) TAB PO SCH (09:02)
[2020-08-06] MEDS: Bupropion 150 MG SR TAB PO SCH ×2 (09:02→21:31)
[2020-08-06] MEDS: Ondansetron ODT 4 MG TAB PO PRN ×2 (09:03→17:43)
[2020-08-06] MEDS: Losartan 25 MG TAB PO SCH (09:03)
[2020-08-06] MEDS: Colchicine 0.6 MG TAB PO SCH ×2 (09:04→21:31)
[2020-08-06] MEDS: Enoxaparin Sodium 40 MG/0.4 ML SYRINGE SC SCH (09:07)
[2020-08-06] MEDS: Lorazepam 1 MG TAB PO PRN ×2 (11:12→11:13)
[2020-08-06] MEDS: Rosuvastatin 20 MG TAB PO SCH (21:32)
[2020-08-07] MEDS: Piperacillin/Tazobactam 3.375 GM in Sodium Chloride 0.9% 100 ML IVPB SCH ×2 (00:18→05:51)
[2020-08-07] MEDS ORDERED: Loperamide HCl 2 MG CAP PO SCH (01:00)
[2020-08-07 05:28] LABS: #Eosinphils 0.3 thou/uL (0.0-0.7); #Lymphocytes 1.8 thou/uL (1.20-3.40); #Monocytes 0.4 thou/uL (0.11-0.59); #Neutrophils 2.8 thou/uL (1.40-6.50); %Basophils 0.5 % (0.0-1.0); %Eosinophils 6.5 % (0.0-10.0); %Monocytes 7.7 % (0.0-10.0); %Neutrophils 52.2 % (42.0-75.0); Hemoglobin 11.3 g/dL (12.0-16.0); Mean Corpuscular HGB CONC 33.2 g/dL (32.0-36.0); Mean Corpuscular Hemoglobin 32.5 pg (27.0-31.0); Mean Corpuscular Volume 97.9 fL (78.0-98.0); Mean Platelet Volume 7.7 fL (7.4-10.4); Platelet Count 183 thou/uL (130-400); RBC Distribution Width 11.9 % (11.5-14.5); Red Blood Cell (RBC) Count 3.47 mill/uL (4.20-5.40); White Blood Cell (WBC) Count 5.3 thou/uL (4.8-10.8)
[2020-08-07 05:51] LABS: Anion Gap 11 mmol/L (10-20); BUN (Urea Nitrogen) 11 mg/dL (9.8-20.1); Calc. Creatinine Clearance 67 mL/min (70-130); Calcium 8.6 mg/dL (7.8-10.44); Carbon Dioxide 23 mmol/L (22-29); Chloride 109 mmol/L (98-107); Glucose 232 mg/dL (70-105); Potassium 3.9 mmol/L (3.5-5.1); Sodium 139 mmol/L (136-145)
[2020-08-07] MEDS: HumaLOG 300 UNITS/3 ML VIAL SC PRN (05:51)
[2020-08-07 08:21] VITALS: BP 122/59; TEMP 97.6
[2020-08-07] MEDS: Nebivolol HCl 2.5 MG TAB PO SCH (09:14)
[2020-08-07] MEDS: Losartan 25 MG TAB PO SCH (09:14)
[2020-08-07] MEDS: Cholecalciferol 1,000 UNITS (25 MCG) TAB PO SCH (09:15)
[2020-08-07] MEDS: Bupropion 150 MG SR TAB PO SCH (09:15)
[2020-08-07] MEDS: Famotidine 20 MG TAB PO SCH (09:15)
[2020-08-07] MEDS: Colchicine 0.6 MG TAB PO SCH (09:15)
[2020-08-07] MEDS: Aspirin 81 mg Enteric Coated Tablet PO SCH (09:15)
[2020-08-07] MEDS: Lorazepam 1 MG TAB PO PRN (09:17)
[2020-08-07] MEDS: Potassium Chloride 10 MEQ TAB PO SCH (09:21)
[2020-08-09] MEDS ORDERED: Cyanocobalamin 1000 MCG/ML VIAL IM SCH (09:00)
== END 2020-08-07 12:00 | disposition home or self-care (01) | DRG 315 ==
LOC: ERS 21:18 → 2SE 08-05 00:56
PROVIDERS: ADMIT Internal Medicine; ATTEND Internal Medicine
DX: I31.9 Disease of pericardium, unspecified (principal); N17.9 Acute kidney failure, unspecified; E78.5 Hyperlipidemia, unspecified; I12.9 Hypertensive chronic kidney disease with stage 1 through stage 4 chronic kidney disease, or unspecified chronic kidney disease; F41.9 Anxiety disorder, unspecified; F32.9 Major depressive disorder, single episode, unspecified; N18.30 Chronic kidney disease, stage 3 unspecified; R55 Syncope and collapse; E11.22 Type 2 diabetes mellitus with diabetic chronic kidney disease; I25.10 Atherosclerotic heart disease of native coronary artery without angina pectoris; R19.7 Diarrhea, unspecified; R50.9 Fever, unspecified; Z20.822 Contact with and (suspected) exposure to COVID-19; Z79.82 Long term (current) use of aspirin; Z79.4 Long term (current) use of insulin; Z98.61 Coronary angioplasty status
CPT/HCPCS: 36415; 36416; 70450; 71045; 71250; 72125; 80048; 80053; 80061; 81001; 82570; 83605; 83880; 84156; 84300; 84484; 84540; 85025; 85379; 87040; 87324; 87449; 87635; 93005; 93306; 96365; 96367; 96375; 96376; J0692; J1815; J2270; J2543; J3370; J3490; Q0162; U0003; U0005

== ENCOUNTER 2020-11-25 12:39 | Outpatient (CLI) | payer MEDICARE | END 2020-11-25 12:40 | disposition home or self-care (01) | LOC: TBSIIMAG 12:39 | PROVIDERS: ATTEND Neurological Surgery | DX: G95.89 Other specified diseases of spinal cord (principal); M50.20 Other cervical disc displacement, unspecified cervical region; M48.02 Spinal stenosis, cervical region | CPT/HCPCS: 72141 ==

== ENCOUNTER 2021-04-18 21:40 | Emergency (ER) | payer MEDICARE ==
[~2021-04-18 21:40] MED LIST: Iopamidol-370 76% 500 ML 1 ML ONE
[2021-04-18 22:09] LABS: #Eosinphils 0.1 thou/uL (0.0-0.7); #Lymphocytes 0.6 thou/uL (1.20-3.40); #Monocytes 0.3 thou/uL (0.11-0.59); #Neutrophils 3.1 thou/uL (1.40-6.50); %Basophils 0.5 % (0.0-1.0); %Eosinophils 3.5 % (0.0-10.0); %Lymphocytes 13.7 % (21.0-51.0); %Monocytes 7.7 % (0.0-10.0); %Neutrophils 74.6 % (42.0-75.0); Hemoglobin 14.2 g/dL (12.0-16.0); Mean Corpuscular HGB CONC 33.2 g/dL (32.0-36.0); Mean Corpuscular Hemoglobin 32.2 pg (27.0-31.0); Mean Platelet Volume 7.3 fL (7.4-10.4); Platelet Count 190 thou/uL (130-400); RBC Distribution Width 11.9 % (11.5-14.5); Red Blood Cell (RBC) Count 4.39 mill/uL (4.20-5.40); White Blood Cell (WBC) Count 4.1 thou/uL (4.8-10.8)
[2021-04-18] MEDS ORDERED: Acetaminophen 500 MG TAB ONE (22:16)
[2021-04-18 22:34] LABS: ALT (SGPT) 16 U/L (8-55); AST (SGOT) 24 U/L (5-34); Albumin 3.9 g/dL (3.5-5.0); Alkaline Phosphatase 62 U/L (40-110); Anion Gap 14 mmol/L (10-20); BUN (Urea Nitrogen) 16 mg/dL (9.8-20.1); Bilirubin, Total 0.5 mg/dL (0.2-1.2); Calc. Creatinine Clearance 0 mL/min (70-130); Calcium 9.7 mg/dL (7.8-10.44); Carbon Dioxide 25 mmol/L (22-29); Chloride 105 mmol/L (98-107); Globulin 2.8 g/dL (2.4-3.5); Glucose 89 mg/dL (70-105); Lipase 5 U/L (8-78); Potassium 4.3 mmol/L (3.5-5.1); Protein, Total 6.7 g/dL (6.0-8.3); Sodium 140 mmol/L (136-145)
[2021-04-19 22:16] LABS: SARS-CoV-2 PCR by NAA DETECTED (NotDetected)
== END 2021-04-19 01:09 | disposition home or self-care (01) ==
LOC: ERS 21:40
DX: U07.1 COVID-19 (principal); E10.22 Type 1 diabetes mellitus with diabetic chronic kidney disease; N18.6 End stage renal disease; I25.10 Atherosclerotic heart disease of native coronary artery without angina pectoris; K21.9 Gastro-esophageal reflux disease without esophagitis
CPT/HCPCS: 71045; 71275; 80053; 83690; 84484; 85025; 93005; 94760; U0003; U0005; 36415; Q9967

== ENCOUNTER 2021-05-28 18:36 | Inpatient (IN) | payer MEDICARE ==
[2021-05-28 19:00] LABS: #Basophils 0.1 thou/uL (0.0-0.2); #Eosinphils 0.2 thou/uL (0.0-0.7); #Lymphocytes 2.1 thou/uL (1.20-3.40); #Monocytes 0.7 thou/uL (0.11-0.59); #Neutrophils 4.3 thou/uL (1.40-6.50); %Basophils 1.1 % (0.0-1.0); %Eosinophils 2.4 % (0.0-10.0); %Lymphocytes 28.2 % (21.0-51.0); %Monocytes 9.7 % (0.0-10.0); %Neutrophils 58.6 % (42.0-75.0); Hemoglobin 13.2 g/dL (12.0-16.0); Mean Corpuscular HGB CONC 33.4 g/dL (32.0-36.0); Mean Corpuscular Hemoglobin 32.3 pg (27.0-31.0); Mean Corpuscular Volume 96.9 fL (78.0-98.0); Mean Platelet Volume 6.8 fL (7.4-10.4); Platelet Count 245 thou/uL (130-400); RBC Distribution Width 12.3 % (11.5-14.5); Red Blood Cell (RBC) Count 4.08 mill/uL (4.20-5.40); White Blood Cell (WBC) Count 7.3 thou/uL (4.8-10.8)
[2021-05-28 19:22] LABS: ALT (SGPT) 24 U/L (8-55); AST (SGOT) 21 U/L (5-34); Alkaline Phosphatase 67 U/L (40-110); Anion Gap 18 mmol/L (10-20); BUN (Urea Nitrogen) 16 mg/dL (9.8-20.1); Bilirubin, Total 0.4 mg/dL (0.2-1.2); Calc. Creatinine Clearance 0 mL/min (70-130); Carbon Dioxide 21 mmol/L (22-29); Chloride 104 mmol/L (98-107); Globulin 2.8 g/dL (2.4-3.5); Glucose 202 mg/dL (70-105); Potassium 4.3 mmol/L (3.5-5.1); Protein, Total 6.8 g/dL (6.0-8.3); Sodium 139 mmol/L (136-145)
[2021-05-28] MEDS ORDERED: Aspirin Chewable 81 MG TAB ONE (20:47)
[2021-05-28] MEDS ORDERED: Acetaminophen 500 MG TAB ONE (20:47)
[2021-05-28] MEDS ORDERED: Ondansetron ODT 4 MG TAB SL PRN (22:45)
[2021-05-28] MEDS ORDERED: Acetaminophen 325 MG TAB PO PRN (22:45)
[2021-05-28] MEDS ORDERED: Ondansetron PF 4 MG/2 ML Vial IVP PRN (22:45)
[2021-05-28 23:38] VITALS: BMI 25.7
[2021-05-28] MEDS ORDERED: Dextrose 5% in Water 1,000 ML IV PRN (23:38)
[2021-05-28] MEDS ORDERED: Nitroglycerin 0.4 MG TAB (25 Tab Bottle) SL PRN (23:38)
[2021-05-28] MEDS ORDERED: HumaLOG 300 UNITS/3 ML VIAL SC PRN ×2 (23:38)
[2021-05-28] MEDS ORDERED: Dextrose 50% Abboject 50 ML SYRINGE SLOW IVP PRN (23:38)
[2021-05-28 23:59] LABS: Troponin I Less than 0.010 ng/mL (< 0.028)
[2021-05-29 04:29] LABS: #Eosinphils 0.2 thou/uL (0.0-0.7); #Lymphocytes 1.8 thou/uL (1.20-3.40); #Monocytes 0.6 thou/uL (0.11-0.59); #Neutrophils 3.8 thou/uL (1.40-6.50); %Basophils 0.6 % (0.0-1.0); %Eosinophils 2.7 % (0.0-10.0); %Lymphocytes 28.6 % (21.0-51.0); %Monocytes 9.2 % (0.0-10.0); %Neutrophils 58.9 % (42.0-75.0); Mean Corpuscular HGB CONC 32.6 g/dL (32.0-36.0); Mean Corpuscular Hemoglobin 32.3 pg (27.0-31.0); Mean Corpuscular Volume 99.1 fL (78.0-98.0); Mean Platelet Volume 6.7 fL (7.4-10.4); Platelet Count 221 thou/uL (130-400); RBC Distribution Width 12.4 % (11.5-14.5); Red Blood Cell (RBC) Count 4.03 mill/uL (4.20-5.40); White Blood Cell (WBC) Count 6.4 thou/uL (4.8-10.8)
[2021-05-29 04:50] LABS: Anion Gap 10 mmol/L (10-20); BUN (Urea Nitrogen) 17 mg/dL (9.8-20.1); Calc. Creatinine Clearance 48 mL/min (70-130); Calcium 9.3 mg/dL (7.8-10.44); Carbon Dioxide 30 mmol/L (22-29); Chloride 105 mmol/L (98-107); Glucose 179 mg/dL (70-105); Potassium 4.3 mmol/L (3.5-5.1); Sodium 141 mmol/L (136-145)
[2021-05-29 04:54] LABS: Troponin I Less than 0.010 ng/mL (< 0.028)
[2021-05-29] MEDS ORDERED: ADENOSINE 60 MG/20 ML VIAL ONE (08:46)
[2021-05-29] MEDS: Aspirin Chewable 81 MG TAB PO SCH (09:39)
[2021-05-29] MEDS: Enoxaparin Sodium 40 MG/0.4 ML SYRINGE SC SCH (09:39)
[2021-05-29 11:03] LABS: SARS-CoV-2 PCR by NAA DETECTED (NotDetected)
[2021-05-29] MEDS ORDERED: Sodium Chloride 0.9% 500 ML IV SCH (15:00)
[2021-05-29] MEDS ORDERED: Acetaminophen 325 MG TAB PO PRN (19:32)
[2021-05-29] MEDS ORDERED: Rosuvastatin 20 MG TAB PO SCH (21:00)
[2021-05-30 04:37] VITALS: TEMP 97.6
[2021-05-30 08:24] VITALS: BP 109/71
[2021-05-30] MEDS: Enoxaparin Sodium 40 MG/0.4 ML SYRINGE SC SCH (08:25)
[2021-05-30] MEDS: Aspirin Chewable 81 MG TAB PO SCH (08:25)
[2021-05-30] MEDS ORDERED: Ezetimibe 10 MG TAB PO SCH (09:00)
[2021-05-30] MEDS ORDERED: Nebivolol HCl 2.5 MG TAB PO SCH (09:00)
== END 2021-05-30 12:00 | disposition home or self-care (01) | DRG 303 ==
LOC: ERS 18:36 → 2NO 21:09 → OBSVTOIN 05-29 17:14
PROVIDERS: ADMIT Student in an Organized Health Care Education/Training Program; ATTEND Family Medicine
DX: I25.10 Atherosclerotic heart disease of native coronary artery without angina pectoris (principal); K21.9 Gastro-esophageal reflux disease without esophagitis; E78.5 Hyperlipidemia, unspecified; E10.22 Type 1 diabetes mellitus with diabetic chronic kidney disease; I95.9 Hypotension, unspecified; N18.30 Chronic kidney disease, stage 3 unspecified; I25.2 Old myocardial infarction; Z95.5 Presence of coronary angioplasty implant and graft; Z79.82 Long term (current) use of aspirin; Z79.899 Other long term (current) drug therapy; Z90.710 Acquired absence of both cervix and uterus; Z90.49 Acquired absence of other specified parts of digestive tract; Z98.51 Tubal ligation status; Z86.16 Personal history of COVID-19
CPT/HCPCS: 36415; 36416; 71045; 78452; 80048; 80053; 83880; 84484; 85025; 85379; 93005; 93017; 96372; A9500; G0378; J0153; J1650; J7030; U0003; U0005

== ENCOUNTER 2021-09-07 16:07 | Emergency (ER) | payer MEDICARE ==
[2021-09-07 16:58] LABS: Bilirubin Negative (Negative); Blood, Urine 2+ (Negative); Clarity Turbid (Clear); Glucose, Urine (Dipstick) Normal (Negative); Ketone, Urine Negative (Negative); Leukocyte 500 Leu/uL (Negative); Nitrite Negative (Negative); Protein, Urine (Dipstick) 30 mg/dL (Neg-Trace); Specific Gravity, Urine 1.014 (1.002-1.036); Squamous Epithelial 0-3 HPF (0-3); Urobilinogen Normal mg/dL (Less than 2); WBC/HPF Greater than 50 HPF (0-3)
[2021-09-07 17:03] LABS: #Eosinphils 0.2 thou/uL (0.0-0.7); #Lymphocytes 2.2 thou/uL (1.20-3.40); #Monocytes 0.5 thou/uL (0.11-0.59); #Neutrophils 5.2 thou/uL (1.40-6.50); %Basophils 0.5 % (0.0-1.0); %Eosinophils 2.3 % (0.0-10.0); %Lymphocytes 26.8 % (21.0-51.0); %Neutrophils 64.5 % (42.0-75.0); Mean Corpuscular HGB CONC 32.1 g/dL (32.0-36.0); Mean Corpuscular Volume 99.5 fL (78.0-98.0); Mean Platelet Volume 7.1 fL (7.4-10.4); Platelet Count 240 thou/uL (130-400); RBC Distribution Width 11.8 % (11.5-14.5); Red Blood Cell (RBC) Count 4.07 mill/uL (4.20-5.40); White Blood Cell (WBC) Count 8.1 thou/uL (4.8-10.8)
[2021-09-07 17:05] LABS: Bacteria/HPF Rare-Few HPF (None Seen)
[2021-09-07 17:23] LABS: ALT (SGPT) 19 U/L (8-55); AST (SGOT) 25 U/L (5-34); Albumin 4.1 g/dL (3.5-5.0); Alkaline Phosphatase 62 U/L (40-110); Anion Gap 12 mmol/L (10-20); BUN (Urea Nitrogen) 19 mg/dL (9.8-20.1); Bilirubin, Total 0.3 mg/dL (0.2-1.2); Calc. Creatinine Clearance 0 mL/min (70-130); Calcium 9.3 mg/dL (7.8-10.44); Carbon Dioxide 26 mmol/L (22-29); Chloride 102 mmol/L (98-107); Globulin 3.2 g/dL (2.4-3.5); Glucose 152 mg/dL (70-105); Potassium 4.3 mmol/L (3.5-5.1); Protein, Total 7.3 g/dL (6.0-8.3); Sodium 136 mmol/L (136-145)
[2021-09-07] MEDS ORDERED: Morphine 4 MG/ML VIAL ONE (19:33)
[2021-09-07] MEDS ORDERED: Diazepam 5 MG TAB ONE (19:33)
== END 2021-09-07 19:55 | disposition home or self-care (01) ==
LOC: ERS 16:07
DX: N10 Acute pyelonephritis (principal); E10.22 Type 1 diabetes mellitus with diabetic chronic kidney disease; N18.32 Chronic kidney disease, stage 3b; E10.319 Type 1 diabetes mellitus with unspecified diabetic retinopathy without macular edema; I25.2 Old myocardial infarction; K21.9 Gastro-esophageal reflux disease without esophagitis; Z79.82 Long term (current) use of aspirin; Z79.899 Other long term (current) drug therapy
CPT/HCPCS: 36415; 74176; 80053; 81003; 81015; 85025; 87086; 96372; J2270

== ENCOUNTER 2021-09-18 07:31 | Emergency (ER) | payer MEDICARE, SELFPAY ==
[2021-09-18 08:25] LABS: Bilirubin Negative (Negative)
[2021-09-18 08:30] LABS: Clarity Hazy (Clear)
[2021-09-18 08:31] LABS: Leukocyte Unable to Interpret (Negative); Specific Gravity, Urine 1.011 (1.002-1.036); pH, Urine 6.4 (5.0-9.0)
[2021-09-18 08:32] LABS: Blood, Urine Unable to Interpret (Negative); Glucose, Urine (Dipstick) Unable to Interpret mg/dL (Negative); Ketone, Urine Unable to Interpret mg/dL (Negative); Nitrite Unable to Interpret (Negative); Protein, Urine (Dipstick) Unable to Interpret mg/dL (Neg-Trace); Urobilinogen UNABLE TO INTERPRET mg/dL (Less than 2)
[2021-09-18 08:33] LABS: RBC/HPF 21-50 HPF (0-3); WBC/HPF Greater than 50 HPF (0-3)
[2021-09-18 08:35] LABS: Bacteria/HPF Rare-Few HPF (None Seen)
[2021-09-18 08:53] LABS: #Eosinphils 0.1 thou/uL (0.0-0.7); #Lymphocytes 1.5 thou/uL (1.20-3.40); #Monocytes 0.5 thou/uL (0.11-0.59); %Basophils 0.3 % (0.0-1.0); %Eosinophils 1.2 % (0.0-10.0); %Lymphocytes 13.5 % (21.0-51.0); %Monocytes 4.8 % (0.0-10.0); %Neutrophils 80.2 % (42.0-75.0); Hemoglobin 12.6 g/dL (12.0-16.0); Mean Corpuscular HGB CONC 32.9 g/dL (32.0-36.0); Mean Corpuscular Hemoglobin 32.4 pg (27.0-31.0); Mean Corpuscular Volume 98.6 fL (78.0-98.0); Mean Platelet Volume 6.3 fL (7.4-10.4); Platelet Count 244 thou/uL (130-400); RBC Distribution Width 11.9 % (11.5-14.5); Red Blood Cell (RBC) Count 3.89 mill/uL (4.20-5.40); White Blood Cell (WBC) Count 11.2 thou/uL (4.8-10.8)
[2021-09-18 09:12] LABS: ALT (SGPT) 17 U/L (8-55); AST (SGOT) 22 U/L (5-34); Albumin 3.7 g/dL (3.5-5.0); Alkaline Phosphatase 53 U/L (40-110); Anion Gap 9 mmol/L (10-20); BUN (Urea Nitrogen) 12 mg/dL (9.8-20.1); Bilirubin, Total 0.5 mg/dL (0.2-1.2); Calc. Creatinine Clearance 0 mL/min (70-130); Calcium 9.3 mg/dL (7.8-10.44); Carbon Dioxide 28 mmol/L (22-29); Chloride 106 mmol/L (98-107); Globulin 2.8 g/dL (2.4-3.5); Glucose 102 mg/dL (70-105); Potassium 4.1 mmol/L (3.5-5.1); Protein, Total 6.5 g/dL (6.0-8.3); Sodium 139 mmol/L (136-145)
== END 2021-09-18 09:48 | disposition short-term general hospital (02) ==
LOC: ERS 07:31
DX: R31.9 Hematuria, unspecified (principal); E10.22 Type 1 diabetes mellitus with diabetic chronic kidney disease; N18.6 End stage renal disease; E10.319 Type 1 diabetes mellitus with unspecified diabetic retinopathy without macular edema; I25.10 Atherosclerotic heart disease of native coronary artery without angina pectoris; K21.9 Gastro-esophageal reflux disease without esophagitis; Z95.5 Presence of coronary angioplasty implant and graft; Z87.19 Personal history of other diseases of the digestive system; Z79.82 Long term (current) use of aspirin; Z79.899 Other long term (current) drug therapy
CPT/HCPCS: 36415; 80053; 81003; 81015; 85025; 87086; 99283

== ENCOUNTER 2022-07-06 08:13 | Outpatient (CLI) | payer MEDICARE | END 2022-07-06 08:14 | disposition home or self-care (01) | LOC: BICMAMMO 08:13 | PROVIDERS: ATTEND Internal Medicine | DX: N63.20 Unspecified lump in the left breast, unspecified quadrant (principal); N60.22 Fibroadenosis of left breast; N60.21 Fibroadenosis of right breast | CPT/HCPCS: 76642; 77066; G0279 ==

== ENCOUNTER 2023-10-14 10:29 | Outpatient (CLI) | payer MEDICARE | END 2023-10-14 10:30 | disposition home or self-care (01) | LOC: BICMAMMO 10:29 | PROVIDERS: ATTEND Internal Medicine | DX: Z12.31 Encounter for screening mammogram for malignant neoplasm of breast (principal); M81.0 Age-related osteoporosis without current pathological fracture; M85.851 Other specified disorders of bone density and structure, right thigh; M85.852 Other specified disorders of bone density and structure, left thigh; Z80.3 Family history of malignant neoplasm of breast; Z91.89 Other specified personal risk factors, not elsewhere classified | CPT/HCPCS: 77063; 77067; 77080 ==

== ENCOUNTER 2025-01-08 11:11 | Emergency (ER) | payer MEDICARE ==
[2025-01-08 11:49] LABS: #Basophils Less than 0.03 10x3/uL (0.0-0.2); #Eosinophils 0.12 10x3/uL (0.0-0.7); #Monocytes 0.32 10x3/uL (0.11-0.59); #Neutrophils 2.21 10x3/uL (1.40-6.50); %Basophils 0.5 % (0.0-1.0); %Eosinophils 3.1 % (0.0-10.0); %Lymphocytes 29.8 % (21.0-51.0); %Monocytes 8.4 % (0.0-10.0); %Neutrophils 57.9 % (42.0-75.0); Hematocrit 40.4 % (36.0-47.0); Hemoglobin 13.0 g/dL (12.0-16.0); Mean Corpuscular Hemoglobin 30.5 pg (27.0-31.0); Mean Corpuscular Volume 94.8 fL (78.0-98.0); Platelet Count 219 10x3/uL (130-400); Red Blood Cell (RBC) Count 4.26 mill/uL (4.20-5.40); White Blood Cell (WBC) Count 3.82 10x3/uL (4.8-10.8)
[2025-01-08 12:24] LABS: ALT (SGPT) Less than 7 U/L (Less than 34); AST (SGOT) 26 U/L (11-34); Albumin 3.8 g/dL (3.1-4.5); Alkaline Phosphatase 64 U/L (40-110); Anion Gap 15 mmol/L (10-20); BUN (Urea Nitrogen) 14 mg/dL (9.8-20.1); Bilirubin, Total 0.6 mg/dL (0.3-1.2); Calc. Creatinine Clearance 0 mL/min (70-130); Calcium 9.1 mg/dL (7.8-10.44); Carbon Dioxide 25 mmol/L (22-29); Chloride 105 mmol/L (98-107); Globulin 3.2 g/dL (2.4-3.5); Glucose 202 mg/dL (70-105); Lipase 22 U/L (8-78); Potassium 4.3 mmol/L (3.5-5.1); Sodium 141 mmol/L (136-145)
[2025-01-08 13:04] LABS: Bacteria/HPF None Seen HPF (None Seen); CAUTI Indications for Culture Dysuria,urgency,freq; Glucose, Urine (Dipstick) Normal (Negative); Leukocyte 25 Leu/uL (Negative); Protein, Urine (Dipstick) Negative (Neg-Trace); RBC/HPF 0-3 HPF (0-3); Specific Gravity, Urine 1.013 (1.002-1.036); WBC/HPF 0-3 HPF (0-3)
[2025-01-08 13:07] LABS: Urine Culture Reflex No No
[2025-01-08] MEDS ORDERED: Ketorolac Tromethamine 30 MG (1 mL) VIAL ONE (13:40)
[2025-01-08] MEDS ORDERED: Metoclopramide HCl 10 MG (2 mL) VIAL ONE (13:40)
== END 2025-01-08 15:24 | disposition home or self-care (01) ==
LOC: ERS 11:11
DX: K59.00 Constipation, unspecified (principal); E10.22 Type 1 diabetes mellitus with diabetic chronic kidney disease; N18.32 Chronic kidney disease, stage 3b
CPT/HCPCS: 36415; 74176; 80053; 81001; 83690; 85025; 96374; 96375; J1885; J2765

== ENCOUNTER 2025-03-31 07:25 | Inpatient (IN) | payer MEDICARE ==
[2025-03-31] MEDS ORDERED: Azithromycin 500 MG VIAL ONE (08:12)
[2025-03-31] MEDS ORDERED: cefTRIAXone (ROCEPHIN) 2 GM VIAL ONE (08:12)
[2025-03-31] MEDS ORDERED: Ketorolac Tromethamine 30 MG (1 mL) VIAL ONE (08:12)
[2025-03-31 08:48] LABS: #Basophils Less than 0.03 10x3/uL (0.0-0.2); #Eosinophils Less than 0.03 10x3/uL (0.0-0.7); #Monocytes 0.39 10x3/uL (0.11-0.59); #Neutrophils 5.03 10x3/uL (1.40-6.50); %Basophils 0.2 % (0.0-1.0); %Eosinophils 0.0 % (0.0-10.0); %Lymphocytes 14.8 % (21.0-51.0); %Monocytes 6.1 % (0.0-10.0); %Neutrophils 78.6 % (42.0-75.0); Hematocrit 36.0 % (36.0-47.0); Hemoglobin 11.8 g/dL (12.0-16.0); Mean Corpuscular Hemoglobin 29.9 pg (27.0-31.0); Mean Corpuscular Volume 91.4 fL (78.0-98.0); Platelet Count 162 10x3/uL (130-400); Red Blood Cell (RBC) Count 3.94 mill/uL (4.20-5.40); White Blood Cell (WBC) Count 6.40 10x3/uL (4.8-10.8)
[2025-03-31 09:12] LABS: ALT (SGPT) 50 U/L (Less than 34); AST (SGOT) 51 U/L (11-34); Albumin 3.2 g/dL (3.1-4.5); Alkaline Phosphatase 75 U/L (40-110); Anion Gap 12 mmol/L (10-20); BUN (Urea Nitrogen) 15 mg/dL (9.8-20.1); Bilirubin, Total 0.3 mg/dL (0.3-1.2); Calc. Creatinine Clearance 0 mL/min (70-130); Calcium 8.1 mg/dL (7.8-10.44); Carbon Dioxide 22 mmol/L (22-29); Chloride 104 mmol/L (98-107); Globulin 2.5 g/dL (2.4-3.5); Glucose 101 mg/dL (70-105); Potassium 4.1 mmol/L (3.5-5.1); Sodium 134 mmol/L (136-145)
[2025-03-31 10:06] LABS: Specific Gravity, Urine 1.019 (1.002-1.036)
[2025-03-31 10:07] LABS: Bacteria/HPF 2+ HPF (None Seen); CAUTI Indications for Culture Alt mental st,lethar; Glucose, Urine (Dipstick) Greater than 1000 mg/dL (Negative); Leukocyte 250 Leu/uL (Negative); Protein, Urine (Dipstick) 20 mg/dL (Neg-Trace); RBC/HPF 0-3 HPF (0-3); WBC/HPF 21-50 HPF (0-3)
[2025-03-31 10:08] LABS: Urine Culture Reflex Yes Yes
[2025-03-31] MEDS ORDERED: Iopamidol-370 76% 500 ML MDV (1 ML CHARGE) ONE (12:32)
[2025-03-31 13:00] VITALS: BMI 24.5
[2025-03-31] MEDS ORDERED: Ketorolac Tromethamine 30 MG (1 mL) VIAL IVP PRN (13:01)
[2025-03-31] MEDS ORDERED: Melatonin 3 MG TAB PO PRN (13:01)
[2025-03-31] MEDS ORDERED: Glucagon 1 MG/ML KIT IM PRN (13:55)
[2025-03-31] MEDS ORDERED: Dextrose 50% Abboject 50 ML SYRINGE SLOW IVP PRN (13:55)
[2025-03-31] MEDS: Vancomycin 1.5 GM / NS 500ML VIAL-2-BAG IVPB SCH (14:15)
[2025-03-31] MEDS: Azithromycin 500 MG in Sodium Chloride 0.9% 250 ML 250 ML IVPB SCH (14:16)
[2025-03-31] MEDS: cefTRIAXone\\ROCEPHIN 2 GM in Sodium Chloride 0.9% 100 ML IVPB SCH (14:17)
[2025-03-31] MEDS ORDERED: Ondansetron PF 4 MG/2 ML Vial ONE (16:21)
[2025-03-31] MEDS: Ondansetron PF 4 MG/2 ML Vial IVP PRN (16:24)
[2025-03-31] MEDS: Guaifenesin DM 100-10/5 ML UDCUP PO PRN (20:11)
[2025-03-31] MEDS: Bupropion 150 MG SR.TAB PO SCH (20:11)
[2025-03-31] MEDS: Acetaminophen 325 MG TAB PO PRN (20:11)
[2025-03-31] MEDS: Oseltamivir 75 MG CAP PO SCH (20:11)
[2025-04-01 06:31] LABS: Vancomycin, Random 11.6 ug/mL (See Comment)
[2025-04-01 06:32] LABS: Anion Gap 11 mmol/L (10-20); BUN (Urea Nitrogen) 12 mg/dL (9.8-20.1); Calc. Creatinine Clearance 59 mL/min (70-130); Calcium 8.0 mg/dL (7.8-10.44); Carbon Dioxide 23 mmol/L (22-29); Chloride 109 mmol/L (98-107); Glucose 140 mg/dL (70-105); Potassium 4.8 mmol/L (3.5-5.1); Sodium 138 mmol/L (136-145)
[2025-04-01 06:33] LABS: #Basophils Less than 0.03 10x3/uL (0.0-0.2); #Eosinophils Less than 0.03 10x3/uL (0.0-0.7); #Monocytes 0.28 10x3/uL (0.11-0.59); #Neutrophils 5.16 10x3/uL (1.40-6.50); %Basophils 0.2 % (0.0-1.0); %Eosinophils 0.2 % (0.0-10.0); %Lymphocytes 17.5 % (21.0-51.0); %Monocytes 4.2 % (0.0-10.0); %Neutrophils 77.6 % (42.0-75.0); Hematocrit 32.7 % (36.0-47.0); Hemoglobin 10.3 g/dL (12.0-16.0); Mean Corpuscular Hemoglobin 30.0 pg (27.0-31.0); Mean Corpuscular Volume 95.3 fL (78.0-98.0); Platelet Count 123 10x3/uL (130-400); Red Blood Cell (RBC) Count 3.43 mill/uL (4.20-5.40); White Blood Cell (WBC) Count 6.64 10x3/uL (4.8-10.8)
[2025-04-01] MEDS: cefTRIAXone\\ROCEPHIN 2 GM in Sodium Chloride 0.9% 100 ML IVPB SCH (08:45)
[2025-04-01] MEDS: Azithromycin 500 MG in Sodium Chloride 0.9% 250 ML 250 ML IVPB SCH (08:46)
[2025-04-01] MEDS: Ezetimibe 10 MG TAB PO SCH (08:46)
[2025-04-01] MEDS: Enoxaparin 40 MG (0.4 mL) SYRINGE SC SCH (08:47)
[2025-04-01] MEDS: Vancomycin 1.25 GM / NS 250 ML VIAL-2-BAG IVPB SCH (12:21)
[2025-04-02 05:36] LABS: #Basophils Less than 0.03 10x3/uL (0.0-0.2); #Eosinophils 0.09 10x3/uL (0.0-0.7); #Monocytes 0.37 10x3/uL (0.11-0.59); #Neutrophils 2.70 10x3/uL (1.40-6.50); %Basophils 0.4 % (0.0-1.0); %Eosinophils 1.9 % (0.0-10.0); %Lymphocytes 33.7 % (21.0-51.0); %Monocytes 7.7 % (0.0-10.0); %Neutrophils 56.1 % (42.0-75.0); Hematocrit 33.7 % (36.0-47.0); Hemoglobin 11.0 g/dL (12.0-16.0); Mean Corpuscular Hemoglobin 30.6 pg (27.0-31.0); Mean Corpuscular Volume 93.6 fL (78.0-98.0); Platelet Count 135 10x3/uL (130-400); Red Blood Cell (RBC) Count 3.60 mill/uL (4.20-5.40); White Blood Cell (WBC) Count 4.81 10x3/uL (4.8-10.8)
[2025-04-02 05:47] LABS: Vancomycin, Random 15.0 ug/mL (See Comment)
[2025-04-02 05:51] LABS: Anion Gap 10 mmol/L (10-20); BUN (Urea Nitrogen) 10 mg/dL (9.8-20.1); Calc. Creatinine Clearance 63 mL/min (70-130); Calcium 8.3 mg/dL (7.8-10.44); Carbon Dioxide 26 mmol/L (22-29); Chloride 109 mmol/L (98-107); Glucose 104 mg/dL (70-105); Potassium 4.2 mmol/L (3.5-5.1); Sodium 141 mmol/L (136-145)
[2025-04-02 07:39] VITALS: BP 106/70; TEMP 98
== END 2025-04-02 15:35 | disposition home or self-care (01) | DRG 871 ==
LOC: ERS 07:25 → ERHOLD 12:46 → T4-B 17:46
PROVIDERS: ADMIT Internal Medicine; ATTEND Internal Medicine
DX: A41.9 Sepsis, unspecified organism (principal); J11.08 Influenza due to unidentified influenza virus with specified pneumonia; J96.01 Acute respiratory failure with hypoxia; J15.9 Unspecified bacterial pneumonia; N39.0 Urinary tract infection, site not specified; R65.20 Severe sepsis without septic shock; I25.10 Atherosclerotic heart disease of native coronary artery without angina pectoris; K21.9 Gastro-esophageal reflux disease without esophagitis; N18.9 Chronic kidney disease, unspecified; F41.9 Anxiety disorder, unspecified; F32.A Depression, unspecified; E10.22 Type 1 diabetes mellitus with diabetic chronic kidney disease; F39 Unspecified mood [affective] disorder; Z90.710 Acquired absence of both cervix and uterus; Z90.49 Acquired absence of other specified parts of digestive tract; Z98.890 Other specified postprocedural states; Z98.51 Tubal ligation status; Z98.84 Bariatric surgery status; Z95.5 Presence of coronary angioplasty implant and graft
CPT/HCPCS: 36415; 71045; 71275; 74177; 80048; 80053; 80202; 81001; 83605; 83880; 84145; 84484; 85025; 87040; 87077; 87086; 87149; 93005; 94640; 96365; 96367; 96375; J0456; J0696; J1650; J1885; J2405; J3373; J7030; J7050; J7120; Q9967